=== PATIENT | male | born 1960 | race Caucasian/White ===

== ENCOUNTER → 2018-06-24 22:28 | Outpatient (CLI) | payer OTHER, SELFPAY ==
[2018-06-24 22:48] LABS: Absolute Lymphocyte Count 1.85 X10^3/ul (0.83-4.51); Absolute Neutrophil Count 4.5 X10^3/uL (2.0-7.7); Basophil# 0.06 X10^3/uL; Basophil% 0.8 % (0-1); Eosinophil# 0.27 X10^3/uL; Eosinophils% 3.8 % (0-5); Hematocrit 45.8 % (40-54); Hemoglobin 15.8 g/dl (13.0-16.5); Lymphocyte # 1.85 X10^3/ul (4.0); Lymphocyte % 25.8 % (19-41); Mean Corp Hgb Conc 34.5 g/gl (32-36); Mean Corpuscular Hgb 29.6 pg (27.0-32.0); Mean Corpuscular Volume 85.9 fL (80-94); Monocyte# 0.51 X10^3/uL; Monocyte% 7.1 % (0-10); Neutrophil # 4.45 X10^3/uL (2.7-7.7); Neutrophil % 62.2 % (47-70); Platelet Count 288 K/mm3 (150-450); RBC Distribution Width CV 12.5 % (11.6-14.6); Red Blood Count 5.33 M/mm3 (4.6-6.2); White Blood Count 7.2 K/mm3 (4.4-11.0)
[2018-06-24 23:10] LABS: AST(SGOT) 14 U/L (15-37); Alanine Aminotransfer ALT/SGPT 34 U/L (16-61); Alkaline Phosphatase 91 U/L (45-117); Anion Gap 8 (5-15); BUN 12 mg/dL (7-18); BUN/Creat Ratio 13.6 RATIO (10-20); Calcium,Total 9.6 mg/dL (8.5-10.1); Chloride 98 mmol/L (98-107); Cholesterol 169 mg/dL (200); Creatinine, Serum 0.88 mg/dL (0.70-1.30); EST Glomerular Filtration Rate 94 mL/min (>60); Est Glom Filt Rate - Afr Amer 114 mL/min (>60); Glucose 118 mg/dL (74-106); High Density Lipoprotein 31 mg/dL; Potassium 4.6 mmol/L (3.5-5.1); Sodium Level 137 mmol/L (136-145); Triglycerides 126 mg/dL; Very Low Density Lipoprotein 25 mg/dL (5-40)
[2018-06-24 23:12] LABS: POSITIVE COUNT NO; POSITIVE DIFFERENTIAL NO; POSITIVE MORPHOLOGY NO
== END ==
PROVIDERS: Referring Provider Nurse Practitioner; Visit Provider Nurse Practitioner
DX: I10 Essential (primary) hypertension (principal); E11.65 Type 2 diabetes mellitus with hyperglycemia
CPT/HCPCS: 80053; 80061; 85025

== ENCOUNTER 2020-11-09 13:59 | Outpatient (RCR) | payer OTHER, SELFPAY ==
[2019-12-07 15:52] VITALS: BMI 44.2
[2020-11-09] MEDS: COVID-19 VACC, MRNA(PFIZER)/PF 30 MCG/0.3 ML SYRINGE IM (15:19)
[2020-11-30] MEDS: COVID-19 VACC, MRNA(PFIZER)/PF 30 MCG/0.3 ML SYRINGE IM (14:50)
== END 2021-02-05 23:59 ==
LOC: IMMUN 13:59
PROVIDERS: PCP Nurse Practitioner; Referring Provider Family Medicine; Visit Provider Family Medicine
DX: Z23 Encounter for immunization (principal)
CPT/HCPCS: 0001A; 0002A; 91300

== ENCOUNTER → 2021-04-25 22:21 | Outpatient (CLI) | payer OTHER, SELFPAY ==
[2021-04-25 22:30] LABS: Absolute Lymphocyte Count 1.67 X10^3/uL (0.83-4.51); Absolute Neutrophil Count 5.5 X10^3/uL (2.0-7.7); Basophil# 0.05 X10^3/uL; Basophil% 0.6 % (0-1); Eosinophils% 1.3 % (0-5); Hematocrit 48.1 % (40-54); Hemoglobin 15.9 g/dL (13.0-16.5); Lymphocyte # 1.67 X10^3/ul (0.83-4.51); Mean Corp Hgb Conc 33.1 g/dL (32-36); Mean Corpuscular Hgb 29.6 pg (27.0-32.0); Mean Corpuscular Volume 89.6 fL (80-94); Mean Platelet Vol. 11.1 fl (6.2-12.0); Monocyte# 0.58 X10^3/uL; Monocyte% 7.3 % (0-10); NRBC Flagged by Analyzer 0 % (0-5); Neutrophil # 5.54 X10^3/uL (2.7-7.7); Neutrophil % 69.5 % (47-70); Platelet Count 322 K/mm3 (150-450); RBC Distribution Width CV 12.9 % (11.6-14.6); RBC Distribution Width SD 42.2 fl (35.1-43.9); Red Blood Count 5.37 M/mm3 (4.6-6.2)
[2021-04-25 22:50] LABS: ALB/GLOB Ratio 1.1 RATIO (0.9-2.4); AST(SGOT) 25 U/L (15-37); Alanine Aminotransfer ALT/SGPT 35 U/L (16-61); Albumin, Serum 4.1 g/dL (3.2-5.0); Alkaline Phosphatase 81 U/L (45-117); Anion Gap 8 (5-15); BUN 19 mg/dL (7-18); BUN/Creat Ratio 16.2 RATIO (10-20); Calcium,Total 9.2 mg/dL (8.5-10.1); Chloride 103 mmol/L (98-107); Cholesterol 165 mg/dL (200); Creatinine, Serum 1.17 mg/dL (0.70-1.30); EST Glomerular Filtration Rate 67 mL/min (>60); Est Glom Filt Rate - Afr Amer 81 mL/min (>60); Globulin 3.8 g/dL (2.2-4.2); Glucose 111 mg/dL (74-106); High Density Lipoprotein 38 mg/dL; PSA,Total- Diagnostic 1.12 ng/mL (0.0-4.0); Potassium 3.9 mmol/L (3.5-5.1); Protein, Total 7.9 g/dL (6.4-8.2); Sodium Level 137 mmol/L (136-145); Thyroid Stim Hormone (TSH) 1.49 uIU/mL (0.358-3.74); Triglycerides 95 mg/dL; Very Low Density Lipoprotein 19 mg/dL (5-40)
[2021-04-25 22:57] LABS: Hemoglobin A1c 6.9 % (3.8-5.6)
== END ==
PROVIDERS: PCP Nurse Practitioner; Visit Provider Nurse Practitioner
DX: I10 Essential (primary) hypertension (principal); E11.65 Type 2 diabetes mellitus with hyperglycemia; E03.9 Hypothyroidism, unspecified; R35.0 Frequency of micturition
CPT/HCPCS: 80053; 80061; 83036; 84153; 84443; 85025

== ENCOUNTER → 2022-09-11 | Outpatient (CLI) | payer OTHER, SELFPAY | END | disposition home or self-care (01) | PROVIDERS: PCP Nurse Practitioner; Visit Provider Nurse Practitioner | DX: J34.89 Other specified disorders of nose and nasal sinuses (principal); E11.69 Type 2 diabetes mellitus with other specified complication; E11.65 Type 2 diabetes mellitus with hyperglycemia; E03.9 Hypothyroidism, unspecified; E78.5 Hyperlipidemia, unspecified; I10 Essential (primary) hypertension ==

== ENCOUNTER → 2022-09-15 | Outpatient (CLI) | payer OTHER, SELFPAY ==
[2022-09-15 21:56] LABS: Absolute Lymphocyte Count 2.34 X10^3/uL (0.83-4.51); Absolute Neutrophil Count 3.6 X10^3/uL (2.0-7.7); Basophil# 0.06 X10^3/uL; Basophil% 0.9 % (0-1); Eosinophils% 4.4 % (0-5); Hematocrit 47.1 % (40-54); Hemoglobin 15.5 g/dL (13.0-16.5); Lymphocyte # 2.34 X10^3/ul (0.83-4.51); Mean Corp Hgb Conc 32.9 g/dL (32-36); Mean Corpuscular Hgb 29.7 pg (27.0-32.0); Mean Corpuscular Volume 90.2 fL (80-94); Mean Platelet Vol. 11.2 fl (6.2-12.0); Monocyte# 0.56 X10^3/uL; Monocyte% 8.1 % (0-10); NRBC Flagged by Analyzer 0 % (0-5); Neutrophil # 3.61 X10^3/uL (2.7-7.7); Neutrophil % 52.3 % (47-70); Platelet Count 279 K/mm3 (150-450); RBC Distribution Width CV 12.4 % (11.6-14.6); RBC Distribution Width SD 40.8 fl (35.1-43.9); Red Blood Count 5.22 M/mm3 (4.6-6.2); White Blood Count 6.9 K/mm3 (4.4-11.0)
[2022-09-15 22:22] LABS: ALB/GLOB Ratio 0.9 RATIO (0.9-2.4); AST(SGOT) 14 U/L (15-37); Alanine Aminotransfer ALT/SGPT 30 U/L (16-61); Albumin, Serum 3.5 g/dL (3.2-5.0); Alkaline Phosphatase 87 U/L (45-117); Anion Gap 10 (5-15); BUN 14 mg/dL (7-18); Calcium,Total 9.3 mg/dL (8.5-10.1); Chloride 100 mmol/L (98-107); Cholesterol 154 mg/dL (200); EST Glomerular Filtration Rate 80 mL/min (>60); Est Glom Filt Rate - Afr Amer 97 mL/min (>60); Globulin 3.9 g/dL (2.2-4.2); Glucose 228 mg/dL (74-106); High Density Lipoprotein 32 mg/dL; PSA,Total - Annual Screen 1.11 ng/mL (0.00-4.00); Potassium 4.8 mmol/L (3.5-5.1); Protein, Total 7.4 g/dL (6.4-8.2); Sodium Level 139 mmol/L (136-145); Thyroid Stim Hormone (TSH) 2.47 uIU/mL (0.358-3.74); Triglycerides 187 mg/dL; Very Low Density Lipoprotein 37 mg/dL (5-40)
[2022-09-15 22:23] LABS: Hemoglobin A1c 7.6 % (3.8-5.6)
== END | disposition home or self-care (01) ==
PROVIDERS: PCP Nurse Practitioner; Visit Provider Nurse Practitioner
DX: R35.0 Frequency of micturition (principal); E11.69 Type 2 diabetes mellitus with other specified complication; E11.65 Type 2 diabetes mellitus with hyperglycemia; E03.9 Hypothyroidism, unspecified; E78.5 Hyperlipidemia, unspecified; I10 Essential (primary) hypertension
CPT/HCPCS: 80053; 80061; 83036; 84153; 84443; 85025; G0103

== ENCOUNTER → 2023-10-23 | Outpatient (CLI) | payer MEDICARE, SELFPAY ==
[2023-10-23 22:22] LABS: Absolute Lymphocyte Count 1.81 X10^3/uL (0.83-4.51); Absolute Neutrophil Count 4.5 X10^3/uL (2.0-7.7); Basophil# 0.06 X10^3/uL; Basophil% 0.9 % (0-1); Eosinophil# 0.19 X10^3/uL; Eosinophils% 2.7 % (0-5); Hemoglobin 15.7 g/dL (13.0-16.5); Lymphocyte # 1.81 X10^3/ul (0.83-4.51); Lymphocyte % 25.7 % (19-41); Mean Corp Hgb Conc 32.7 g/dL (32-36); Mean Corpuscular Hgb 29.5 pg (27.0-32.0); Mean Corpuscular Volume 90.1 fL (80-94); Mean Platelet Vol. 11.4 fl (6.2-12.0); Monocyte# 0.52 X10^3/uL; Monocyte% 7.4 % (0-10); NRBC Flagged by Analyzer 0 % (0-5); Neutrophil # 4.45 X10^3/uL (2.7-7.7); Neutrophil % 63.2 % (47-70); Platelet Count 296 K/mm3 (150-450); RBC Distribution Width CV 12.5 % (11.6-14.6); RBC Distribution Width SD 41.5 fl (35.1-43.9); Red Blood Count 5.33 M/mm3 (4.6-6.2)
[2023-10-23 22:51] LABS: AST(SGOT) 24 U/L (15-37); Alanine Aminotransfer ALT/SGPT 42 U/L (16-61); Albumin, Serum 3.8 g/dL (3.2-5.0); Alkaline Phosphatase 83 U/L (45-117); Anion Gap 5 (5-15); BUN 19 mg/dL (7-18); BUN/Creat Ratio 17.1 RATIO (10-20); Chloride 102 mmol/L (98-107); Cholesterol 224 mg/dL (200); Creatinine, Serum 1.11 mg/dL (0.70-1.30); EST Glomerular Filtration Rate 71 mL/min (>60); Est Glom Filt Rate - Afr Amer 85 mL/min (>60); Globulin 3.7 g/dL (2.2-4.2); Glucose 217 mg/dL (74-106); High Density Lipoprotein 34 mg/dL; PSA,Total- Diagnostic 1.25 ng/mL (0.0-4.0); Potassium 3.9 mmol/L (3.5-5.1); Protein, Total 7.5 g/dL (6.4-8.2); Sodium Level 134 mmol/L (136-145); Thyroid Stim Hormone (TSH) 1.86 uIU/mL (0.358-3.74); Triglycerides 160 mg/dL; Very Low Density Lipoprotein 32 mg/dL (5-40)
[2023-10-23 22:54] LABS: Hemoglobin A1c 9.1 % (3.8-5.6)
== END | disposition home or self-care (01) ==
PROVIDERS: PCP Nurse Practitioner; Visit Provider Nurse Practitioner
DX: R35.0 Frequency of micturition (principal); E11.69 Type 2 diabetes mellitus with other specified complication; E11.65 Type 2 diabetes mellitus with hyperglycemia; E03.9 Hypothyroidism, unspecified; E78.5 Hyperlipidemia, unspecified; I10 Essential (primary) hypertension
CPT/HCPCS: 80053; 80061; 83036; 84153; 84443; 85025

== ENCOUNTER → 2024-02-23 | Outpatient (CLI) | payer MEDICARE, SELFPAY ==
[2024-02-23 22:04] LABS: Cholesterol 158 mg/dL (200); High Density Lipoprotein 31 mg/dL; Triglycerides 159 mg/dL; Very Low Density Lipoprotein 32 mg/dL (5-40)
== END | disposition home or self-care (01) ==
PROVIDERS: PCP Nurse Practitioner; Visit Provider Nurse Practitioner
DX: E11.69 Type 2 diabetes mellitus with other specified complication (principal); E78.5 Hyperlipidemia, unspecified
CPT/HCPCS: 80061